=== PATIENT | male | born 1990 | race Caucasian/White ===

== ENCOUNTER 2016-10-23 10:18 | Emergency (ER) | payer OTHER ==
[~2016-10-23] VITALS: Ht 165.1 cm; Wt 98.7 kg
[~2016-10-23 10:18] MED LIST: ACET-141 PO; ONDA4TAB14 PO; RANI150T9 PO; SUCR1TAB56 PO
[2016-10-23 10:36] VITALS: Ht 165.1 cm; Wt 98.7 kg
[2016-10-23] MEDS ORDERED: SOD CHLORIDE 0.9% 1,000 ML IV STA (10:56)
[2016-10-23] MEDS ORDERED: morphine 4 MG/ML VIAL IV STA (10:56)
[2016-10-23] MEDS ORDERED: ONDANSETRON 4 MG INJ IV STA ×2 (10:56→12:26)
[2016-10-23 11:27] LABS: ADD SCAN DIFF NO
[2016-10-23 11:47] LABS: BASOPHIL # 0.1 10^3/ul (0.0-0.1); BASOPHILS % 0.4 % (0.0-2.0); EOSINOPHILS # 0.1 10^3/ul (0.0-0.5); EOSINOPHILS % 0.5 % (0.0-7.0); HEMATOCRIT 43.5 % (42.0-52.0); HEMOGLOBIN 15.4 g/dl (14.0-18.0); LYMPHOCYTES # 1.5 10^3/ul (0.8-2.9); MEAN CORPUSCULAR HEMOGLOBIN 29.4 pg (29.0-33.0); MEAN CORPUSCULAR HGB CONC 35.4 g/dl (32.0-37.0); MEAN PLATELET VOLUME 9.9 fl (7.4-10.4); MONOCYTE # 0.7 10^3/ul (0.3-0.9); MONOCYTES % 5.3 % (0.0-11.0); NEUTROPHIL # 11.1 10^3/ul (1.6-7.5); PLATELET COUNT 297 10^3/UL (140-415); RED BLOOD COUNT 5.24 10^6/ul (4.70-6.10); RED CELL DISTRIBUTION WIDTH 13.2 % (11.5-14.5); WHITE BLOOD COUNT 13.5 10^3/ul (4.8-10.8)
[2016-10-23 11:54] LABS: ALBUMIN/GLOBULIN RATIO 2.08; BILIRUBIN,INDIRECT 0.3 mg/dl (0-1.1); BILIRUBIN,TOTAL 0.3 mg/dl (0.2-1.3); CALCIUM 9.4 mg/dl (8.4-10.2); CREATININE 0.74 mg/dl (0.61-1.24); POTASSIUM 3.9 mmol/L (3.5-5.1); TOTAL PROTEIN 7.4 g/dl (6.1-8.1)
--- NOTE | 2016-10-23 12:04 | RADRPT ---
PROCEDURE: CT Abdomen and Pelvis without contrast. CLINICAL INDICATION: Abdominal pain with nausea and vomiting. TECHNIQUE: CT scan of the abdomen and pelvis without contrast was performed on a multidetector hig h-resolution CT scanner. The patient was scanned without intravenous contrast. Coronal and sagittal reformatted images were obtained from the axial source images. Images were reviewed on a high-resol [employer] PACS workstation. The total exam CTDI equals 22.61 mGy and the total exam DLP equals 1480.81 m Gy-cm. One or the following dose reduction techniques were used: -Automated exposure control. -Adjustment of the mA and/or KV according to patient's size. -Use of iterative reconstruction technique. COMPARISON: None. FINDINGS: Lung Bases: Unremarkable. GI:. There is a tiny hiatal hernia. Liver: There is a patchy decrease in attenuation in the liver suggesting steatosis. Gallbladder: Unremarkable. Pancreas: Unremarkable. Spleen: Unremarkablel Adrenals: Unremarkable. Kidneys: There is no evidence of urolithiasis or obstructive uropathy. Bladder: Unremarkable. Pelvic Organs: Unremarkable. Skeleton: Normal for age. Other: N/A IMPRESSION: 1. Heterogeneous decrease in attenuation of the liver suggesting diffuse steatosis. 2. Normal appearing appendix visualized. 3. No evidence of urolithiasis or obstructive uropathy. 4. Tiny hiatal hernia. 5. No other significant intra-abdominal or pelvic process identified. RPTAT: [facility] Physician Trixie Date Time Electronically viewed and signed by Physician Trixie on 10/23/2016 12:03 /
[2016-10-23 12:08] LABS: ADD UMIC NO; UR BILIRUBIN (Dip) NEGATIVE (NEGATIVE); UR BLOOD (Dip) NEGATIVE (NEGATIVE); UR CLARITY CLEAR (CLEAR); UR COLOR LT. YELLOW (YELLOW); UR GLUCOSE (Dip) NEGATIVE (NEGATIVE); UR KETONES (Dip) NEGATIVE (NEGATIVE); UR LEUKOCYTE ESTERASE (Dip) NEGATIVE (NEGATIVE); UR NITRITE (Dip) NEGATIVE (NEGATIVE); UR TOTAL PROTEIN (Dip) NEGATIVE (NEGATIVE); UR UROBILINOGEN (Dip) 0.2 E.U./dL (0.1-1.0)
--- NOTE | 2016-10-23 12:55 | ERA ---
ER Documentation Chief Complaint Date/Time DATE: 10/23/16 TIME: 12:52 Chief Complaint UPPER ABD PAIN WITH VOMITING, PALE HPI This is a 26-year-old male present with a chief complaint of abdominal pain 1 day. Patient denies any aggravating or alleviating factors.Patient denies fever , chest pain, shortness of breath, pharyngitis, diarrhea, any personal or family medical history, alcohol or drug abuse, chest pain, shortness of breath. Patient does not take any medications to relieve the symptoms. Patient has been worked up for similar symptomology multiple times in the ED but denies ever having these symptoms before. ROS All systems reviewed and are negative except as per history of present illness. Medications Home Meds Active Scripts Famotidine* (Pepcid*) 20 Mg Tablet, 20 MG PO BID for 4 Days, TAB Prov:LUCIAN GREENFIELD PA-C 10/23/16 Ondansetron (Ondansetron Odt) 4 Mg Tab.rapdis, 4 MG PO Q6H Y for NAUSEA AND/OR VOMITING, #10 TAB Prov:CATHERINE PEGUERO 03/27/16 Ranitidine Hcl* (Zantac*) 150 Mg Tablet, 150 MG PO BID Y for EPIGASTRIC PAIN, # 30 TAB Prov:CATHERINE PEGUERO 03/27/16 Sucralfate* (Carafate*) 1 Gm Tab, 1 GM PO QID, #120 TAB Prov:CATHERINE PEGUERO 03/27/16 Ondansetron (Ondansetron Odt) 4 Mg Tab.rapdis, 4 MG PO Q6H Y for NAUSEA AND/OR VOMITING, #20 TAB Prov:HARLEY CHAMPION PA-C 02/17/16 Reported Medications Acetaminophen* (Acetaminophen*) 500 MG Extra Strength Tablet, 1000 MG PO Q6H Y for PAIN AND OR ELEVATED TEMP, TAB 03/27/16 Allergies Allergies: Coded Allergies: No Known Allergy (Unverified , 03/27/16) PMhx/Soc History of Surgery: Yes (RIGHT KNEE surgery) Anesthesia Reaction: No Hx Neurological Disorder: No Hx Respiratory Disorders: No Hx Cardiac Disorders: No Hx Psychiatric Problems: No Hx Miscellaneous Medical Probl: Yes (GASTRITIS) Hx Alcohol Use: Yes (SOCIAL) Hx Substance Use: Yes (MARIJUANA) Hx Tobacco Use: No Physical Exam Vitals Vital Signs Date Time Temp Pulse Resp B/P Pulse Ox O2 Delivery O2 Flow Rate FiO2 10/23/16 14:06 98.8 60 16 117/58 100 Room Air 10/23/16 10:36 99.0 58 20 180/84 100 Physical Exam Const: Healthy-appearing. Well-nourished. Well-developed. No acute distress. Head: Normocephalic, Atraumatic. No sinus tenderness. Eyes: Non-injected; No scleral erythema, discharge or foreign body. EOMI and JUANA bilaterally. Ears: Normal External Ears, EACs clear, TM normal bilaterally without erythema. Nose: Normal nose without discharge, septal deviation, or sinus tenderness. Oral: No oral edema visualized. Mucous membranes moist and pink. Neck: No cervical lymphadenopathy, masses or goiter palpated. Full range of motion. Supple. Trachea midline. ~ No meningismus. Pulm: Good air movement in upper and lower respiratory tracts. No dyspnea, stridor, tripoding or drooling. Clear to auscultation bilaterally. Percussion unremarkable in all lung fine bilaterally. Cardio: Regular rate and rhythm; No murmurs, gallops or rubs auscultated. No JVD grossly observed. Radial and posterior tibial pulses 2+ bilaterally. No cyanosis. Capillary refill less than 2 seconds. Abd: Mild tenderness in the right upper quadrant and epigastric regions. Soft, non distended. No guarding, masses. Normal bowel sounds. No McBurney's point tenderness. MS: Normal motor strength, normal tone with gross examination. Skin: No petechiae or rashes. No ulcer, induration, jaundice. Good turgor. Back: No midline, flank or CVA tenderness. Ext: No cyanosis, or edema. Normal movement of all extremities grossly observed. Neur: Awake, alert and oriented x3. Neurovascularly intact bilaterally. Psych: Active and alert. Normal Mood and Affect. Oriented x3. Result Diagram: 10/23/16 1107 10/23/16 1107 Results 24 hrs Laboratory Tests Test 10/23/16 11:07 10/23/16 11:25 White Blood Count 13.510^3/ul Red Blood Count 5.2410^6/ul Hemoglobin 15.4g/dl Hematocrit 43.5% Mean Corpuscular Volume 83.0fl Mean Corpuscular Hemoglobin 29.4pg Mean Corpuscular Hemoglobin Concent 35.4g/dl Red Cell Distribution Width 13.2% Platelet Count 71438^3/UL Mean Platelet Volume 9.9fl Neutrophils % 82.0% Lymphocytes % 11.0% Monocytes % 5.3% Eosinophils % 0.5% Basophils % 0.4% Nucleated Red Blood Cells % 0.0/100WBC Neutrophils # 11.110^3/ul Lymphocytes # 1.510^3/ul Monocytes # 0.710^3/ul Eosinophils # 0.110^3/ul Basophils # 0.110^3/ul Nucleated Red Blood Cells # 0.010^3/ul Sodium Level 138mmol/L Potassium Level 3.9mmol/L Chloride Level 103mmol/L Carbon Dioxide Level 25mmol/L Anion Gap 14 Blood Urea Nitrogen 8mg/dl Creatinine 0.74mg/dl Glucose Level 105mg/dl Calcium Level 9.4mg/dl Total Bilirubin 0.3mg/dl Direct Bilirubin 0.00mg/dl Indirect Bilirubin 0.3mg/dl Aspartate Amino Transf (AST/SGOT) 19IU/L Alanine Aminotransferase (ALT/SGPT) 32IU/L Alkaline Phosphatase 68IU/L Total Protein 7.4g/dl Albumin 5.0g/dl Globulin 2.40g/dl Albumin/Globulin Ratio 2.08 Lipase 93U/L Urine Color LT. YELLOW Urine Clarity CLEAR Urine pH 7.0 Urine Specific [place] 1.010 Urine Ketones NEGATIVE Urine Nitrite NEGATIVE Urine Bilirubin NEGATIVE Urine Urobilinogen 0.2 E.U./dL Urine Leukocyte Esterase NEGATIVE Urine Hemoglobin NEGATIVE Urine Glucose NEGATIVE% Urine Total Protein NEGATIVE Current Medications Medications (Trade) Dose Ordered Sig/Fidelina Route PRN Reason Start Time Stop Time Status Last Admin Dose Admin Sodium Chloride (NS) 1,000 ml @ 1,000 mls/hr Q1H STAT IV 10/23/16 10:56 10/23/16 11:55 DC 10/23/16 11:33 Morphine Sulfate (morphine) 4 mg ONCE STAT IV 10/23/16 10:56 10/23/16 10:59 DC 10/23/16 11:32 Ondansetron HCl (Zofran Inj) 4 mg ONCE STAT IV 10/23/16 10:56 10/23/16 10:59 DC 10/23/16 11:13 Ondansetron HCl (Zofran Inj) 4 mg ONCE STAT IV 10/23/16 12:26 10/23/16 12:27 DC 10/23/16 12:40 Pantoprazole (Protonix Iv) 40 mg ONCE ONCE IV 10/23/16 13:30 10/23/16 13:31 DC 10/23/16 13:25 Procedures/MDM Patient was evaluated and worked up for abdominal discomfort. Patient was given a 1 L bolus of saline, 4 mg of morphine IV, 4 mg of Zofran IV. The workup included lipase, CMP, CBC, urinalysis and CAT scan. Labs were significant for neutrophilic leukocytosis with 13.5 leukocytes and 82 % neutrophils. The CAT scan was read by the radiologist and the following impression was given : 1. Heterogeneous decrease in attenuation of the liver suggesting diffuse steatosis. 2. Normal appearing appendix visualized. 3. No evidence of urolithiasis or obstructive uropathy. 4. Tiny hiatal hernia. 5. No other significant intra-abdominal or pelvic process identified. Patient was hypertensive. A second set of vitals were taken and showed resolution of hypertension. I enlisted the help of my supervising physician Dr. Salas who evaluated the patient and agreed that the exam was benign. He then suggested discharging the patient after IV Protonix with home medications including p.o. Pepcid. The current most likely diagnosis is gastritis due to unknown etiology. This treatment plan will thus include Pepcid p.o. at home with recommendation to follow-up with PCP in the next 1-3 days. At this time I do not suspect appendicitis, intestinal ischemia, peritonitis, intestinal obstruction, perforated viscus, acute pancreatitis, cholangitis, cholelithiasis, mechanical obstruction, AAA; as well as testicular torsion, epididymitis, prostatitis, or UTI. On repeat exam, the abdomen remains largely unremarkable. The patient is well appearing, and tolerates PO. I have spoke with the patient regarding their condition and future management. They have verbally responded that they understand their status and treatment plan. The patients vitals are stable, and their current condition is appropriate for discharge. The patient will be given discharge instructions with return precautions. Departure Diagnosis: Primary Impression: Abdominal pain Qualified Code: R10.84 - Generalized abdominal pain Condition: Stable Additional Instructions: Follow up with your PCP within the next 1-3 days for a more thorough evaluation and a possible referral to a specialist. Return the the emergency department immediately if symptoms worsen or change. If you have any questions regarding medications, ask your pharmacist or us before you leave. If any adverse reactions occur while taking your medications, discontinue the treatment and return to the emergency department immediately. Take your medications as directed, and complete the entire course of treatment. LUCIAN GREENFIELD PA-C Oct 23, 2016 12:55
[2016-10-23] MEDS ORDERED: PANTOPRAZOLE 40 MG INJ IV ONE (13:30)
[2016-10-23] MEDS ORDERED: FAMO-18 PO (13:43)
[2016-10-23 14:06] VITALS: BP 117/58; PULSE 60; RESP 16; TEMP 98.8
== END 2016-10-23 14:10 | disposition home or self-care (01) ==
LOC: FTE 10:18
DX: R10.84 Generalized abdominal pain (principal); R11.10 Vomiting, unspecified
CPT/HCPCS: 36415; 74176; 80053; 81003; 83690; 85025; 96361; 96374; 96375; 96376; C9113; J2270; J2405; J7030; Z7502

== ENCOUNTER 2017-01-10 19:30 | Emergency (ER) | payer SELFPAY ==
[~2017-01-10] VITALS: Ht 165.1 cm; Wt 102.0 kg
[~2017-01-10 19:30] MED LIST changes: +FAMO-96 PO
[2017-01-10 19:43] VITALS: Ht 165.1 cm; Wt 102.0 kg
== END 2017-01-10 22:56 | disposition left against medical advice (07) ==
LOC: FTE 19:30
DX: Z53.21 Procedure and treatment not carried out due to patient leaving prior to being seen by health care provider (principal)